=== PATIENT | male | born 1945 | race Caucasian/White ===

== ENCOUNTER 2021-12-27 09:33 | Emergency (ER) | payer MEDICARE, SELFPAY ==
[2021-12-27 09:35] VITALS: BP 192/71; PULSE 49; RESP 14; TEMP 36.3; O2SAT 98; BMI 27.7
--- NOTE | 2021-12-27 09:45 | CT_ITS ---
HISTORY: dizziness. TECHNIQUE: Multiple axial images were obtained of the head without intravenous contrast. A radiation dose optimization technique was used for this scan. 251 images. COMPARISON: None. FINDINGS: BRAIN PARENCHYMA: Multiple foci and zones of low attenuation in the bilateral cerebral white matter compatible with chronic small vessel ischemic gliosis. No acute intra-axial hemorrhage identified. CSF SPACES: Generalized volume loss. No midline shift or other significant mass effect. No acute extra-axial hemorrhage seen. CALVARIUM: Intact. PARANASAL SINUSES AND MASTOID AIR CELLS: Clear. ORBITS: Bilateral lens resections. CT/Brain/Head without Contrast IMPRESSION: No acute intracranial process identified. Chronic small vessel ischemic gliosis. Electronically Signed: Zakia Emmanuel MD at 10:41 EDT ,
--- NOTE | 2021-12-27 09:45 | EKG12_ITS ---
Test Reason : Blood Pressure : / mmHG Vent. Rate : 047 BPM Atrial Rate : 047 BPM P-R Int : 148 ms QRS Dur : 114 ms QT Int : 486 ms P-R-T Axes : 051 036 054 degrees QTc Int : 430 ms Sinus bradycardia Otherwise normal ECG Confirmed by MARIA FERNANDA DU, CLARISSE ([id number]), deputy editor in chief MEAGAN ROQUE ([id number]) on 12/29/2021 10:00:03 AM Referred By: Guillermo Confirmed By:CLARISSE IRVING MD
--- NOTE | 2021-12-27 09:45 | RAD_ITS ---
HISTORY: dyspnea. TECHNIQUE: XR Chest 1 View. COMPARISON: None. FINDINGS: CARDIOMEDIASTINAL BORDERS: Cardiac silhouette within normal limits in size. Mediastinal contour unremarkable. Midline sternotomy noted. LUNGS: Hazy left basilar opacity. PLEURA: No pleural effusion or pneumothorax seen. OSSEOUS STRUCTURES: Thoracic dextrocurvature. RAD/Chest 1 View (Portable) IMPRESSION: Hazy left basilar opacity which may represent atelectasis or scar. Electronically Signed: Zakia Emmanuel MD at 10:38 EDT ,
--- NOTE | 2021-12-27 09:51 | EX.ED.DYSGE1 ---
HPI <JESUS ALBERTO Jackson - Last Filed: 12/27/21 12:29> History of Present Illness Chief Complaint: Dizziness Narrative Narrative: 76-year-old male with PMH of HLD presents with dizziness. This morning he woke up at 5 AM and walked to the kitchen and had small amount of juice and felt fine at that time. He briefly went back to bed and when he sat up in bed at 6 AM the room started spinning and he had nausea and dry heaving. It was worse with movement and improved with lying down and closing his eyes. He has had this in the past such as when lying down at the dentist but it always resolved on its own. Today's episode seemed longer which prompted him to call EMS. There was no chest pain or shortness of breath. No headache, visual changes, diplopia, or focal motor or sensory changes. No recent illness. He is visiting from [place] for his grandsons wedding. He states he does have a primary care doctor and is fairly healthy and only takes Lipitor. His heart rate here was in the upper 40s?50s which he states is typical for him. PFSH <JESUS ALBERTO Jackson - Last Filed: 12/27/21 12:29> [facility] Medical History (Updated 12/27/21 @ 11:28 by JESUS ALBERTO Jackson) Hyperlipemia Prostate cancer Home Medications atorvastatin 20 mg tablet (Lipitor) 20 mg PO DAILY 12/27/21 [History Last Taken Unknown] meclizine 25 mg tablet 25 mg PO 4X/DAY PRN PRN Dizziness #20 tabs 12/27/21 [Rx Last Taken Unknown] ondansetron 4 mg disintegrating tablet 4 mg PO Q6H PRN nausea and vomiting #12 tabs 12/27/21 [Rx Last Taken Unknown] Allergy/AdvReac Type Severity Reaction Status Date / Time amoxicillin Allergy Rash Verified 12/27/21 09:45 Surgical History (Updated 12/27/21 @ 09:49 by Lauryn Hearn) History of cataract surgery Hx of CABG Stented coronary artery Social History Smoking Status: Never smoker ROS <JESUS ALBERTO Jackson - Last Filed: 12/27/21 12:29> ROS ED ROS Narrative Constitutional: Negative for fever, chills, malaise. Eyes: Negative for visual change. ENT: Negative for sore throat, ear pain, rhinorrhea. CVS: Negative for palpitations, chest pain, syncope. Respiratory: Negative for shortness of breath, cough, orthopnea. GI: Positive for nausea, vomiting. Negative for abdominal pain, diarrhea, constipation, melena, hematochezia. : Negative for dysuria, hematuria or frequency. Neuro: Negative for headache, motor/sensory dysfunction. Skin: Negative for rash, abscess, or wound. Musc: Negative for joint pain, swelling, trauma. Heme: Negative for easy bruising, bleeding, lymphadenopathy. EXAM <JESUS ALBERTO Jackson - Last Filed: 12/27/21 12:29> Physical Exam Narrative Exam Narrative: CONST: Patient sitting in no acute distress. EYES: Normal inspection. PERRLA, EOMI, very minimal horizontal nystagmus with leftward gaze. ENT: Normal inspection, moist mucous membranes. NECK: Normal inspection. RESP: No respiratory distress, CTAB. CVS: Regular rate and rhythm, no murmur, no gallop. ABD: Soft and nontender, no guarding or rebound, nondistended. SKIN: Color normal, no rash, warm, dry, intact. EXTREMITIES: Normal appearance, no pedal edema. NEURO: Oriented x4. 5/5 strength in upper and lower extremities, normal [id number] bilaterally. PSYCH: Normal affect. Const Vital Signs: 12/27/21 09:35 12/27/21 11:40 12/27/21 12:17 Temperature 97.4 F L Temperature Source Oral Pulse Rate 49 L 45 L 53 L Respiratory Rate 14 15 17 Blood Pressure 192/71 H 142/49 H 130/67 H Blood Pressure Mean 111 80 88 Pulse Ox 98 95 94 Oxygen Delivery Method Room Air Room Air Room Air 12/27/21 12:26 12/27/21 12:33 Temperature Temperature Source Pulse Rate 47 L 62 Respiratory Rate 13 16 Blood Pressure 145/61 H 150/66 H Blood Pressure Mean 89 Pulse Ox 98 97 Oxygen Delivery Method Room Air <Dr. Yossi Li DO - Last Filed: 12/27/21 16:07> Physical Exam Const Vital Signs: 12/27/21 09:35 12/27/21 11:40 12/27/21 12:17 Temperature 97.4 F L Temperature Source Oral Pulse Rate 49 L 45 L 53 L Respiratory Rate 14 15 17 Blood Pressure 192/71 H 142/49 H 130/67 H Blood Pressure Mean 111 80 88 Pulse Ox 98 95 94 Oxygen Delivery Method Room Air Room Air Room Air 12/27/21 12:26 12/27/21 12:33 Temperature Temperature Source Pulse Rate 47 L 62 Respiratory Rate 13 16 Blood Pressure 145/61 H 150/66 H Blood Pressure Mean 89 Pulse Ox 98 97 Oxygen Delivery Method Room Air [facility] <JESUS ALBERTO Jackson - Last Filed: 12/27/21 12:29> [facility] Narrative Medical decision making narrative: Patient presents with vertigo worse with movement. He has had similar episodes in the past but does not take medication for this. He appears well nontoxic. BP 192/71, sinus bradycardia 49, otherwise normal vital signs. He states his heart rate always runs in the 40s?50s. On examination he has horizontal nystagmus with a normal neurological exam. Lab work all unremarkable. EKG is sinus bradycardia with no ischemia. CT brain shows no acute process. Patient's symptoms and history sound consistent with peripheral vertigo. He was treated with IV fluids and meclizine but states when he stood up for the x-ray he still had room spinning. He was medicated with Phenergan and is feeling improved and is able to ambulate in the ED. Patient and family are comfortable going home. I prescribed as needed meclizine and Zofran and recommended he follow-up with his primary care when he returns home. If symptoms worsen return to ER. 1. Peripheral vertigo 2. Nausea and vomiting Lab Data Attestation: I reviewed the patient's lab results. Labs: Laboratory Results - last 24 hr 12/27/21 12/27/21 09:15 09:15 WBC 8.2 RBC 4.34 L Hgb 14.4 Hct 44.5 MCV 102.5 H MCH 33.2 H MCHC 32.4 RDW Std Deviation 52.2 H RDW Coeff of Ruchi 13.6 Plt Count 240 MPV 11.2 Immature Gran % (Auto) 0.600 Neut % (Auto) 76.4 H Lymph % (Auto) 14.9 L Licking % (Auto) 7.4 Eos % (Auto) 0.5 Baso % (Auto) 0.2 Absolute Neuts (auto) 6.3 Absolute Lymphs (auto) 1.22 Nucleated RBC % 0 Sodium 140 Potassium 4.6 Chloride 110 H Carbon Dioxide 26.0 Anion Gap 4 L BUN 18 Creatinine 0.93 Estim Creat Clear Calc 70.86 Est GFR (MDRD) Af Amer 102 Est GFR (MDRD) Non-Af 84 BUN/Creatinine Ratio 19.4 Glucose 146 H Calcium 9.2 Radiography Diagnostic Testing: Clinical Impression(s) from Imaging Studies Brain CT 12/27/21 09:45 IMPRESSION: No acute intracranial process identified. Chronic small vessel ischemic gliosis. Electronically Signed: Zakia Emmanuel MD at 10:41 EDT , Chest X-Ray 12/27/21 09:45 IMPRESSION: Hazy left basilar opacity which may represent atelectasis or scar. Electronically Signed: Zakia Emmanuel MD at 10:38 EDT , ED attending interpretation of chest x-ray shows normal heart size, no acute infiltrate. EKG Initial EKG: Attestation: I personally reviewed and interpreted this EKG as follows: Interpretation: No Acute Injury Pattern and Sinus Bradycardia Comments: Sinus bradycardia at 47 bpm, normal intervals, no acute ischemia Prior EKG tracings: not available for review <Dr. Yossi Li, DO - Last Filed: 12/27/21 16:07> MDM MDM Narrative Medical decision making narrative: This patient was seen with a PA/VACUUM PAN TENDER Individually assessed they patient including history and physical. I have reviewed everything on the chart that is available and agree with the documentation provided by the PA/VACUUM PAN TENDER including discussion about the assessment, treatment plan, discussion, and return precautions. Patient presenting with vertiginous dizziness. This is reproducible on exam. Patient is not had a work-up for this and therefore blood work was obtained. His CBC and CMP are normal. EKG is sinus bradycardia without signs of ischemia or dysrhythmia. Patient noted to always have bradycardia in the past. CT brain was obtained and this is normal. Patient treated with meclizine and Phenergan and his symptoms did improve. He was able to ambulate stably. Given this I feel he safe to be discharged home. Patient presents with vertigo worse with movement. He has had similar episodes in the past but does not take medication for this. He appears well nontoxic. BP 192/71, sinus bradycardia 49, otherwise normal vital signs. He states his heart rate always runs in the 40s?50s. On examination he has horizontal nystagmus with a normal neurological exam. Lab work all unremarkable. EKG is sinus bradycardia with no ischemia. CT brain shows no acute process. Patient's symptoms and history sound consistent with peripheral vertigo. He was treated with IV fluids and meclizine but states when he stood up for the x-ray he still had room spinning. He was medicated with Phenergan and is feeling improved and is able to ambulate in the ED. Patient and family are comfortable going home. I prescribed as needed meclizine and Zofran and recommended he follow-up with his primary care when he returns home. If symptoms worsen return to ER. 1. Peripheral vertigo 2. Nausea and vomiting Lab Data Labs: Laboratory Results - last 24 hr 12/27/21 12/27/21 09:15 09:15 WBC 8.2 RBC 4.34 L Hgb 14.4 Hct 44.5 MCV 102.5 H MCH 33.2 H MCHC 32.4 RDW Std Deviation 52.2 H RDW Coeff of Ruchi 13.6 Plt Count 240 MPV 11.2 Immature Gran % (Auto) 0.600 Neut % (Auto) 76.4 H Lymph % (Auto) 14.9 L Licking % (Auto) 7.4 Eos % (Auto) 0.5 Baso % (Auto) 0.2 Absolute Neuts (auto) 6.3 Absolute Lymphs (auto) 1.22 Nucleated RBC % 0 Sodium 140 Potassium 4.6 Chloride 110 H Carbon Dioxide 26.0 Anion Gap 4 L BUN 18 Creatinine 0.93 Estim Creat Clear Calc 70.86 Est GFR (MDRD) Af Amer 102 Est GFR (MDRD) Non-Af 84 BUN/Creatinine Ratio 19.4 Glucose 146 H Calcium 9.2 Radiography Diagnostic Testing: Clinical Impression(s) from Imaging Studies Brain CT 12/27/21 09:45 IMPRESSION: No acute intracranial process identified. Chronic small vessel ischemic gliosis. Electronically Signed: Zakia Emmanuel MD at 10:41 EDT , Chest X-Ray 12/27/21 09:45 IMPRESSION: Hazy left basilar opacity which may represent atelectasis or scar. Electronically Signed: Zakia Emmanuel MD at 10:38 EDT , Discharge Plan Triage Chief Complaint: Dizziness ED Midlevel Provider: Dariana Sandoval ED Provider: Yossi Li Dx/Rx/DC Orders Clinical Impression: Benign paroxysmal positional vertigo, Nausea & vomiting Instructions: ED BPV Vertigo Prescriptions: New ondansetron 4 mg tablet,disintegrating 4 mg PO Q6H PRN (Reason: nausea and vomiting) Qty: 12 0RF meclizine 25 mg tablet 25 mg PO 4X/DAY PRN PRN (Reason: Dizziness) Qty: 20 0RF No Action atorvastatin [Lipitor] 20 mg Tablet 20 mg PO DAILY Primary Care Provider: Jason Hawkins Referrals: Jason Hawkins [Other] Activity Restrictions/Additional Instructions: Take the vertigo and nausea medication as needed. If symptoms are not manageable at home, return to the ER. Disposition Disposition: Home, Self Care Discharge Date/Time: 12/27/21 12:40
[2021-12-27] MEDS: 0.9% Normal Saline 1,000 ML 1000 ML IV (09:58)
[2021-12-27 10:02] LABS: Absolute Lymphocyte Count 1.22 X10^3/uL (0.83-4.51); Absolute Neutrophil Count 6.3 X10^3/uL (2.0-7.7); Basophil# 0.02 X10^3/uL; Basophil% 0.2 % (0-1); Eosinophil# 0.04 X10^3/uL; Eosinophils% 0.5 % (0-5); Hematocrit 44.5 % (40-54); Hemoglobin 14.4 g/dL (13.0-16.5); Lymphocyte # 1.22 X10^3/ul (0.83-4.51); Lymphocyte % 14.9 % (19-41); Mean Corp Hgb Conc 32.4 g/dL (32-36); Mean Corpuscular Hgb 33.2 pg (27.0-32.0); Mean Corpuscular Volume 102.5 fL (80-94); Mean Platelet Vol. 11.2 fl (6.2-12.0); Monocyte# 0.61 X10^3/uL; Monocyte% 7.4 % (0-10); NRBC Flagged by Analyzer 0 % (0-5); Neutrophil # 6.26 X10^3/uL (2.7-7.7); Neutrophil % 76.4 % (47-70); Platelet Count 240 K/mm3 (150-450); RBC Distribution Width CV 13.6 % (11.6-14.6); RBC Distribution Width SD 52.2 fl (35.1-43.9); Red Blood Count 4.34 M/mm3 (4.6-6.2); White Blood Count 8.2 K/mm3 (4.4-11.0)
[2021-12-27] MEDS: Meclizine HCl 25 MG Tablet PO (10:03)
[2021-12-27 10:25] LABS: Anion Gap 4 (5-15); BUN 18 mg/dL (7-18); BUN/Creat Ratio 19.4 RATIO (10-20); Calcium,Total 9.2 mg/dL (8.5-10.1); Chloride 110 mmol/L (98-107); Creatinine, Serum 0.93 mg/dL (0.70-1.30); EST Glomerular Filtration Rate 84 mL/min (>60); Est Glom Filt Rate - Afr Amer 102 mL/min (>60); Estimated Creatinine Clearance 70.86 ml/min; Glucose 146 mg/dL (74-106); Potassium 4.6 mmol/L (3.5-5.1); Sodium Level 140 mmol/L (136-145)
[2021-12-27] MEDS: proMETHazine 25 MG/ML Syringe 12.5 MG IM (11:07)
[2021-12-27 11:40] VITALS: BP 142/49; PULSE 45; RESP 15; O2SAT 95
[2021-12-27 12:17] VITALS: BP 130/67; PULSE 53; RESP 17; O2SAT 94
[2021-12-27 12:26] VITALS: BP 145/61; PULSE 47; RESP 13; O2SAT 98
[2021-12-27 12:33] VITALS: BP 150/66; PULSE 62; RESP 16; O2SAT 97
== END 2021-12-27 12:40 | disposition home or self-care (01) ==
PROVIDERS: Physician Assistant; Emergency Provider Student in an Organized Health Care Education/Training Program; Visit Provider Student in an Organized Health Care Education/Training Program
DX: H81.399 Other peripheral vertigo, unspecified ear (principal)
CPT/HCPCS: 70450; 71045; 80048; 85025; 93005; 96360; 96361; 96372; 99285